=== PATIENT | female | born 1965 | race Hispanic/Latino ===

== ENCOUNTER 2021-12-29 17:12 | Emergency (ER) | payer SELFPAY ==
[2021-12-30 03:06] LABS: Basophils # (Auto) 0.1 K/mm3 (0.0-0.1); Basophils % (Auto) 0.5 % (0.0-1.8); Eosinophils # (Auto) 0.1 K/mm3 (0.0-0.4); Eosinophils % (Auto) 1.1 % (0.0-4.3); Hematocrit 41.6 % (30.3-42.9); Hemoglobin 13.7 gm/dl (10.1-14.3); Lymphocytes % (Auto) 33.8 % (13.4-35.0); Mean Corpuscular HGB Conc 33 % (30-34); Mean Corpuscular Volume 88 fl (79-97); Monocytes # (Auto) 0.6 K/mm3 (0.0-0.8); Monocytes % (Auto) 5.4 % (0.0-7.3); Platelet Count 285 K/mm3 (140-440); Red Blood Count 4.72 M/mm3 (3.65-5.03); Red Cell Distribution Width 13.6 % (13.2-15.2)
[2021-12-30 03:13] LABS: Bacteria,Urine 1+ /HPF (Negative); Bilirubin,Urine NEG (Negative); Blood,Urine NEG (Negative); Color,Urine Yellow (Yellow); Hyaline Casts,Urine 2 /LPF; Mucus,Urine FEW /HPF
[2021-12-30 03:17] LABS: Amphetamine Screen,Urine PRESUMPTIVE NEGATIVE; Benzodiazepines Screen,Urine PRESUMPTIVE NEGATIVE; Cannabinoid Screen,Urine PRESUMPTIVE NEGATIVE; Cocaine Screen,Urine PRESUMPTIVE POSITIVE; Methadone Screen,Urine PRESUMPTIVE NEGATIVE; Opiate Screen,Urine PRESUMPTIVE NEGATIVE
[2021-12-30 03:24] LABS: Alanine Aminotransferase 12 units/L (7-56); Albumin 3.9 g/dL (3.9-5); BUN/Creatinine Ratio 27; Blood Urea Nitrogen 24 mg/dL (7-17); Calcium 9.2 mg/dL (8.4-10.2); Hemolysis Index 9
[2021-12-30] MEDS ORDERED: INSULIN REGULAR, HUMAN 100 UNITS/1 ML IV ONE (04:19)
[2021-12-30] MEDS ORDERED: SODIUM CHLORIDE 0.9% 1000 ML 1,000 ML IV ONE (04:19)
--- NOTE | 2021-12-30 06:34 | Emergency Department Report ---
ED Medical Clearance HPI - General Chief complaint: Medical Clearance Stated complaint: MEDICAL CLEARENCE Time Seen by Provider: 12/30/21 02:36 Source: patient Mode of arrival: Ambulatory - History of Present Illness Initial comments: 56-year-old female presents to the emergency department requesting medical clearance for admission and to review her substance abuse program and psychiatric center. She reports having history and issues with depression and EtOH. Last drink was 3 days ago and her depression does wax and wane but she currently reports no homicidal ideation no suicidal ideation but would like to get treatment for her excessive alcohol abuse which she thinks is due to the depression. Reports no chest pain or palpitation no nausea vomiting does admit to a history of of diabetes. Place: home Associated Symptoms: denies: diaphoresis, denies other symptoms, headaches, anorexia, seizure, syncope, weakness Treatments Prior to Arrival: none Allergies/Adverse reactions: Allergies Allergy/AdvReac Type Severity Reaction Status Date / Time No Known Allergies Allergy Unverified 12/29/21 18:23 ED Review of Systems ROS: Stated complaint: MEDICAL CLEARENCE Other details as noted in HPI Comment: All other systems reviewed and negative ED Physical Exam - General Limitations: No Limitations General appearance: alert, in no apparent distress - Head Head exam: Present: atraumatic, normocephalic - Eye Eye exam: Present: normal appearance - ENT ENT exam: Present: mucous membranes moist - Neck Neck exam: Present: normal inspection - Respiratory Respiratory exam: Present: normal lung sounds bilaterally. Absent: respiratory distress - Cardiovascular Cardiovascular Exam: Present: regular rate, normal rhythm. Absent: systolic murmur, diastolic murmur, rubs, gallop - GI/Abdominal GI/Abdominal exam: Present: soft, normal bowel sounds - Extremities Exam Extremities exam: Present: normal inspection - Back Exam Back exam: Present: normal inspection - Neurological Exam Neurological exam: Present: alert, oriented X3 - Psychiatric Psychiatric exam: Present: normal affect, normal mood. Absent: flat affect, manic, homicidal ideation, suicidal ideation - Skin Skin exam: Present: warm, dry, intact, normal color. Absent: rash ED Course Vital Signs 12/29/21 18:25 Temperature 97.5 F L Pulse Rate 108 H Respiratory 18 Rate Blood Pressure 151/83 O2 Sat by Pulse 95 Oximetry ED Medical Decision Making - Lab Data Result diagrams: 12/30/21 02:51 12/30/21 02:51 - Medical Decision Making There are no acute medical issues requiring hospitalization. The patient does not appear to have an acute medical condition at the time of discharge that would preclude confinement. The patient should return for repeat evaluation should any new or worsening symptoms develop. Medical evaluation performed. There is no clinical evidence of intoxication or any acute medical problem requiring immediate intervention. Final disposition will be determined by psychiatrist/or therapist upon his admission to the [facility] [place] [facility]. ED Disposition Clinical Impression: Hyperglycemia, Medical clearance for psychiatric admission Disposition: HOME / SELF CARE / HOMELESS Is pt being admited?: No Does the pt Need Aspirin: No Condition: Stable Instructions: Hyperglycemia, [id number], Medical Screening Exam Additional Instructions: New you have been medically cleared for [facility] please be sure to take your diabetic medications while in the program Referrals: PRIMARY CARE, [Primary Care Provider] - 3-5 Days
[2021-12-30 07:38] VITALS: BP 128/95
== END 2021-12-30 07:33 | disposition home or self-care (01) ==
LOC: ED 17:12
DX: R73.9 Hyperglycemia, unspecified (principal); Z13.30 Encounter for screening examination for mental health and behavioral disorders, unspecified; Z79.899 Other long term (current) drug therapy
CPT/HCPCS: 36415; 80053; 80307; 81001; 82962; 85025; 87086; 96361; 96374; 99283; J7030; 80320; Q0162; Q9967; G0480; J1815

== ENCOUNTER 2022-01-17 16:01 | Emergency (ER) | payer SELFPAY ==
[2022-01-18] MEDS ORDERED: SODIUM CHLORIDE 0.9% 1000 ML 1,000 ML IV ONE (02:14)
[2022-01-18 02:57] LABS: Hematocrit 39.6 % (30.3-42.9); Hemoglobin 13.3 gm/dl (10.1-14.3); Mean Corpuscular HGB Conc 33 % (30-34); Mean Corpuscular Volume 87 fl (79-97); Platelet Count 255 K/mm3 (140-440); Red Blood Count 4.54 M/mm3 (3.65-5.03); Red Cell Distribution Width 13.3 % (13.2-15.2)
[2022-01-18 03:15] LABS: Alanine Aminotransferase 8 units/L (7-56); Albumin 4.3 g/dL (3.9-5); BUN/Creatinine Ratio 18; Blood Urea Nitrogen 23 mg/dL (7-17); Hemolysis Index 7
--- NOTE | 2022-01-18 03:41 | Cat Scan Report ---
CT HEAD WITHOUT CONTRAST INDICATION / CLINICAL INFORMATION: Lightheadedness / Dizziness. TECHNIQUE: CT head was performed without administration of intravenous contrast. All CT scans at this location are performed using CT dose reduction for ALARA by means of automated exposure control. COMPARISON: None available. FINDINGS: CEREBRAL HEMISPHERES: Generalized atrophy and bilateral regions of periventricular white matter hypoa ttenuation as well as scattered foci of hypoattenuation within the white matter of the cerebral hemis pheres compatible with microvascular ischemia are demonstrated. Small lacunar infarction left thalamu s. Additional lacunar infarction adjacent to the left caudate. No midline shift. Basal cisterns paten t. HEMORRHAGE: None. CEREBELLUM / BRAINSTEM: No significant abnormality. ORBITS: No significant abnormality. SOFT TISSUES: No significant abnormality. SKULL: No significant abnormality. PARANASAL SINUSES / MASTOID AIR CELLS: Normal as visualized. ADDITIONAL FINDINGS: None. IMPRESSION: 1. No acute intracranial abnormality. If clinical concern for acute ischemia is present, MRI would be useful for further evaluation. 2. Probable remote lacunar infarction of the left thalamus. Additional lacunar infarction suggested a djacent the left thalamus. Signer Name: Josef Catalan II, MD Signed: 01/18/2022 3:36 AM Workstation Name: [id number]
--- NOTE | 2022-01-18 04:06 | Emergency Department Report ---
ED Dizziness HPI - General Chief Complaint: Dizziness Stated Complaint: DIZZINESS/FOOT PAIN Time Seen by Provider: 01/18/22 02:05 Source: patient Mode of arrival: Ambulatory Limitations: No Limitations - History of Present Illness Initial Comments: Patient is a 56-year-old female presenting with complaint of dizziness and lightheadedness when walking for the past week. States the symptoms usually occur when she is standing up from sitting. She denies any headache, nausea or vomiting. Also reports noticeable weakness in her left leg that is also been present for the past week. She reports a fall several weeks ago with x-ray showing injury to her L5 region. MD Complaint: dizziness, lightheadedness - Related Data Previous Rx's Medication Instructions Recorded Last Taken Type Meclizine [Antivert] 12.5 mg PO BID PRN #10 01/18/22 Unknown Rx Allergies Allergy/AdvReac Type Severity Reaction Status Date / Time No Known Allergies Allergy Unverified 12/29/21 18:23 ED Review of Systems ROS: Stated complaint: DIZZINESS/FOOT PAIN Other details as noted in HPI Comment: All other systems reviewed and negative Constitutional: denies: chills, fever Respiratory: denies: cough, shortness of breath, wheezing Cardiovascular: denies: chest pain, palpitations Gastrointestinal: denies: abdominal pain, nausea, diarrhea Musculoskeletal: denies: back pain, joint swelling, arthralgia Skin: denies: rash, lesions Neurological: weakness, vertigo Psychiatric: denies: anxiety, depression ED Past Medical Hx - Medications Home Medications: Home Medications Medication Instructions Recorded Confirmed Last Taken Type Meclizine [Antivert] 12.5 mg PO BID PRN #10 01/18/22 Unknown Rx ED Physical Exam - General Limitations: No Limitations General appearance: alert - Head Head exam: Present: atraumatic, normocephalic - Respiratory Respiratory exam: Present: normal lung sounds bilaterally. Absent: respiratory distress - Cardiovascular Cardiovascular Exam: Present: regular rate, normal rhythm. Absent: systolic murmur, diastolic murmur, rubs, gallop - GI/Abdominal GI/Abdominal exam: Present: soft. Absent: distended, tenderness - Extremities Exam Extremities exam: Present: other (Decreased patellar reflex on left with 4/5 strength) - Neurological Exam Neurological exam: Present: alert, oriented X3, CN II-XII intact - Psychiatric Psychiatric exam: Present: normal affect, normal mood - Skin Skin exam: Present: warm, dry, intact, normal color ED Medical Decision Making - Lab Data Result diagrams: 01/18/22 02:18 01/18/22 02:18 - Medical Decision Making CT head shows no acute intracranial findings. Notes possibly an old lacunar infarct. CBC and CMP grossly unremarkable. Patient given 1 L normal saline bolus. Suspect likely benign positional vertigo. Will discharge home on meclizine. Follow-up with PCP within 1 week. Critical care attestation.: If time is entered above; I have spent that time in minutes in the direct care of this critically ill patient, excluding procedure time. ED Disposition Clinical Impression: Benign positional vertigo, Left leg weakness Disposition: 01 HOME / SELF CARE / HOMELESS Is pt being admited?: No Condition: Stable Instructions: Vertigo, [id number] Referrals: BRIT PHELPS MD [Primary Care Provider] - 3-5 Days Time of Disposition: 04:06
[2022-01-18 04:22] LABS: Basophils % (Manual) 0 % (0.0-1.8); Total Cells Counted 100
[2022-01-18 04:23] LABS: Platelet Estimate Consistent w Auto; RBC Morphology Normal
[2022-01-18 04:33] VITALS: BP 143/66
--- NOTE | 2022-01-18 10:26 | Electrocardiograph Report ---
[facility] Test Date: 2022-01-17 Test Time: 18:16:43 Pat Name: LAKESHIA AGUILAR Department: Room: Gender: F Hall Cleaner: EMMA : [id number] Requested By: TRUDY MICHELE Order Number: [id number] Reading MD: Rylan Muir Measurements Intervals [place] Rate: 101 P: 65 UT: 171 QRS: 58 QRSD: 102 T: 68 QT: 372 QTc: 482 Interpretive Statements Sinus tachycardia No previous ECG available for comparison Electronically Signed On 01-18-2022 10:25:47 EDT by Rylan Muir
== END 2022-01-18 04:33 | disposition home or self-care (01) ==
LOC: ED 16:01
DX: H81.10 Benign paroxysmal vertigo, unspecified ear (principal); R53.1 Weakness
CPT/HCPCS: 36415; 70450; 80053; 84484; 85007; 85025; 93005; 96360; 99284; J7030